=== PATIENT | male | born 1980 | race Two or more races ===

== ENCOUNTER 2017-04-16 10:13 | Emergency (ER) | payer MEDICAID, OTHER ==
[~2017-04-16] VITALS: Ht 175.3 cm; Wt 82.0 kg
[2017-04-16] MEDS ORDERED: BACITRACIN ZINC OINT UDPKT TOP ONE (16:00)
[2017-04-16] MEDS ORDERED: LIDOCAINE HCL 1% 20ML VIAL (Pyxis) INJ MC ONE (16:00)
[2017-04-16 18:45] VITALS: BP 96/64
[2017-04-16] MEDS ORDERED: SULFAMETHOXAZOLE/TRIMETHOPRIM 800/160MG TABLET PO ONE (18:45)
[2017-04-16] MEDS ORDERED: CEPHALEXIN 500MG CAPSULE PO ONE (18:45)
== END 2017-04-16 18:55 | disposition home or self-care (01) ==
LOC: ER 12:09
DX: L02.416 Cutaneous abscess of left lower limb (principal); Z86.19 Personal history of other infectious and parasitic diseases; L98.8 Other specified disorders of the skin and subcutaneous tissue; F17.200 Nicotine dependence, unspecified, uncomplicated; F15.10 Other stimulant abuse, uncomplicated
CPT/HCPCS: 10060; 99284; J3490; X7700; Z7610

== ENCOUNTER 2017-04-16 21:42 | Emergency (ER) | payer MEDICAID, OTHER ==
[~2017-04-16] VITALS: Ht 170.2 cm; Wt 79.0 kg
[2017-04-16] MEDS ORDERED: FAMOTIDINE 20MG TABLET PO ONE (22:30)
[2017-04-16] MEDS ORDERED: DIPHENHYDRAMINE 50MG CAPSULE PO ONE (22:30)
[2017-04-16] MEDS ORDERED: PREDNISONE 20MG TABLET PO ONE (22:30)
[2017-04-17 01:46] VITALS: BP 132/72
== END 2017-04-17 02:04 | disposition home or self-care (01) ==
LOC: ER 21:42
DX: T78.40XA Allergy, unspecified, initial encounter (principal); L02.416 Cutaneous abscess of left lower limb; F17.210 Nicotine dependence, cigarettes, uncomplicated; F15.10 Other stimulant abuse, uncomplicated; X58.XXXA Exposure to other specified factors, initial encounter
CPT/HCPCS: 71010; 93005; 99284; J7512; Z7610; Q0163